=== PATIENT | male | born 1970 | race African-American/Black ===

== ENCOUNTER 2017-03-24 20:01 | Emergency (ER) | payer MEDICAID ==
[2017-03-24 20:21] VITALS: BP 148/99
[2017-03-24] MEDS ORDERED: Cyclobenzaprine 10 MG Tab PO ONE (20:33)
[2017-03-24] MEDS ORDERED: Ketorolac 60 MG/2 ML SDV IM ONE (20:33)
--- NOTE | 2017-03-24 20:36 | EDM.PDOC ---
ED HPI GENERAL MEDICAL PROBLEM - General Chief Complaint: General Stated Complaint: MUSCLE CRAMPS IN ARMS AND LEGS Time Seen by Provider: 03/24/17 20:26 Source of Information: Reports: Patient, RN Notes Reviewed History Limitations: Reports: No Limitations - History of Present Illness INITIAL COMMENTS - FREE TEXT/NARRATIVE: 46-year-old gentleman presents emergency department day with generalized body aches and muscle cramping he states been ongoing for the last 2 days he does work in extreme temperature environments at work ranging from hot to cold he denies any other symptoms or new medications rates the pain 6 out of 10 he did take some oxycodone this morning which provided some relief Generalized Pain Score (Numeric/FACES): 6 - Related Data Allergies Allergy/AdvReac Type Severity Reaction Status Date / Time Penicillins Allergy Swelling Verified 03/24/17 20:21 Home Meds: Home Meds Multivitamin [Multivitamins] 1 tab PO DAILY 03/24/17 [History] NK [No Known Home Meds] 03/24/17 [History] Past Medical History Neurological History: Reports: Concussion - Past Surgical History Musculoskeletal Surgical History: Reports: Other (See Below) Other Musculoskeletal Surgeries/Procedures:: ankle surgery for bone spurs Social & Family History - Tobacco Use Smoking Status *Q: Never Smoker - Recreational Drug Use Recreational Drug Use: Yes Recreational Drug Type: Reports: Marijuana/Hashish Recreational Drug Use Frequency: Not Used In Over 1 Month ED ROS GENERAL - Review of Systems Review Of Systems: See Below Constitutional: Denies: Fever, Chills, Weakness HEENT: Reports: No Symptoms Respiratory: Reports: No Symptoms Cardiovascular: Reports: No Symptoms GI/Abdominal: Reports: No Symptoms : Reports: No Symptoms Musculoskeletal: Reports: Muscle Pain, Muscle Stiffness. Denies: Joint Pain, Joint Swelling Skin: Reports: No Symptoms Neurological: Reports: No Symptoms Psychiatric: Reports: No Symptoms ED EXAM, GENERAL - Physical Exam Exam: See Below Free Text/Narrative:: General: Male, not in any distress, alert and oriented x3 HEENT: head is atraumatic normocephalic, eyes pupils equal round reactive to light, sclera clear no conjunctivitis appreciated. Ears tympanic membranes clear and quintana landmarks and light reflex are present bilaterally canals are clear. Nose no septal deviation, nares are clear, no blood present. Mouth mucosa is moist and pink no erythema or exudate noted in soft palate, tongue is midline uvula is midline, dentition is intact. Neck: Supple no thyromegaly no tracheal deviation. Nodes: Cervical nodes subclavicular nodes nontender no palpable lymphadenopathy noted. Lungs: clear to auscultation bilaterally with symmetrical respirations, no adventitious noise appreciated. CV: Regular rate and rhythm S1 and S2 appreciated no murmurs rubs or gallops noted. Abdomen: Soft, nontender, no palpable masses or organomegaly appreciated, no distention no guarding bowel sounds are present, . Neuro: Cranial nerves II through XII grossly intact Skin: Warm and dry, intact Extremities: No lower extremity edema appreciated, pedal pulse is +2. Course - Vital Signs Last Recorded V/S: Last Vital Signs Temp 98.1 F 03/24/17 20:16 Pulse 87 03/24/17 20:16 Resp 14 03/24/17 20:16 BP 148/99 H 03/24/17 20:16 Pulse Ox 99 03/24/17 20:16 - Orders/Labs/Meds Labs: Laboratory Tests 03/24/17 03/24/17 03/24/17 Range/Units 20:43 20:43 20:48 WBC 7.2 (4.5-11.0) K/uL RBC 5.27 (4.30-5.90) M/uL Hgb 15.1 H (12.0-15.0) g/dL Hct 44.1 (40.0-54.0) % MCV 84 (80-98) fL MCH 29 (27-31) pg MCHC 34 (32-36) % Plt Count 299 (150-400) K/uL Neut % (Auto) 56 (36-66) % Lymph % (Auto) 27 (24-44) % [place] % (Auto) 12 H (2-6) % Eos % (Auto) 4 (2-4) % Baso % (Auto) 1 (0-1) % Sodium 139 L (140-148) mmol/L Potassium 3.8 (3.6-5.2) mmol/L Chloride 102 (100-108) mmol/L Carbon Dioxide 28 (21-32) mmol/L Anion Gap 12.8 (5.0-14.0) mmol/L BUN 9 (7-18) mg/dL Creatinine 1.2 (0.8-1.3) mg/dL Est Cr Clr Drug Dosing 84.43 mL/min Estimated GFR (MDRD) > 60 (>60) Glucose 111 H (74-106) mg/dL Calcium 9.0 (8.5-10.1) mg/dL Total Bilirubin 0.6 (0.2-1.0) mg/dL AST 25 (15-37) U/L ALT 33 (12-78) U/L Alkaline Phosphatase 77 (46-116) U/L Creatine Kinase 809 H (39-308) U/L Total Protein 8.7 H (6.4-8.2) g/dL Albumin 4.1 (3.4-5.0) g/dL Globulin 4.6 H (2.3-3.5) g/dL Albumin/Globulin Ratio 0.9 L (1.2-2.2) Urine Color Yellow Urine Appearance Cloudy Urine pH 5.0 (4.5-8.0) Ur Specific [place] 1.020 (1.008-1.030) Urine Protein Negative (NEGATIVE) mg/dL Urine Glucose (UA) Normal (NEGATIVE) mg/dL Urine Ketones Negative (NEGATIVE) mg/dL Urine Occult Blood Negative (NEGATIVE) Urine Nitrite Negative (NEGAITVE) Urine Bilirubin Negative (NEGATIVE) Urine Urobilinogen Normal (NORMAL) mg/dL Ur Leukocyte Esterase Small (NEGATIVE) Urine RBC 0-5 (0-5) Urine WBC 20-30 H (0-5) Ur Epithelial Cells Few Amorphous Sediment Rare Urine Bacteria Few Urine Mucus Rare Meds: Medications Discontinued Medications Generic Name Dose Route Start Last Admin Trade Name Magdielq PRN Reason Stop Dose Admin Cyclobenzaprine HCl 10 mg 03/24/17 20:33 03/24/17 20:52 Flexeril PO 03/24/17 20:34 10 mg ONETIME ONE Administration Ketorolac Tromethamine 60 mg 03/24/17 20:33 03/24/17 20:52 Toradol IM 03/24/17 20:34 60 mg ONETIME ONE Administration Departure - Departure Time of Disposition: 21:30 Disposition: Home, Self-Care 01 Condition: Good Clinical Impression: Repetitive motion injury, Muscle cramping - Discharge Information Referrals: PCP,None [Primary Care Provider] - Forms: ED Department Discharge Additional Instructions: Use ibuprofen as needed to help with muscle cramps and pain, continue to push fluids with electrolytes, Please followup with your primary care provider in 3- 5 days if not better, please call return to the emergency department with worsening of symptoms. 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 causing excessive sweating Manifestations = muscle cramps Location of injury = Home Lab values = CBC within normal limits CMP demonstrates a protein elevated at 8.7 consistent proteinuria CK is elevated at 809 consistent with muscle breakdown urinalysis reveals WBC 20-30 consistent with pyuria specific gravity urine 1.020 consistent with intravascular volume depletion Plan I did review lab work with him also reviewed his new working environment and after further discussion he does spend time in both hot and cold environments while wearing personal protective equipment which cause him to sweat excessively he's only been doing this job for 2 days which would explain the muscle cramping and muscle breakdown rest and use anti-inflammatories as needed and continue to push fluids with electrolytes follow-up with primary care in 3- 5 days if no improvement, good relief from the Toradol injection provided Patient was in agreement with the plan all questions were answered, they were instructed to return to the emergency department or call for worsening symptoms. This note was dictated using [employer] voice recognition software please call with any questions.
== END 2017-03-24 21:42 | disposition home or self-care (01) ==
LOC: JP.ED 20:01
DX: R25.2 Cramp and spasm (principal); Z88.0 Allergy status to penicillin; X50.9XXA Other and unspecified overexertion or strenuous movements or postures, initial encounter; Y99.0 Civilian activity done for income or pay
CPT/HCPCS: 36415; 80053; 81001; 82550; 85025; 96372; 99284; A9270; J1885; 99283

== ENCOUNTER 2017-04-17 19:08 | Emergency (ER) | payer MEDICAID ==
[2017-04-17 20:03] VITALS: BP 151/82
--- NOTE | 2017-04-17 20:43 | EDM.PDOC ---
ED HPI GENERAL MEDICAL PROBLEM - General Chief Complaint: Lower Extremity Injury/Pain Stated Complaint: L ANKLE Time Seen by Provider: 04/17/17 20:22 Source of Information: Reports: Patient, RN Notes Reviewed History Limitations: Reports: No Limitations - History of Present Illness INITIAL COMMENTS - FREE TEXT/NARRATIVE: 46-year-old gentleman presents emergency department day complaint of left ankle pain, he states is been ongoing for a couple years she has had some surgical interventions to this ankle however the last couple days the pain has gotten progressively worse he does work at [employer] which consists of long periods of standing Left Ankle Pain Score (Numeric/FACES): 7 - Related Data Allergies Allergy/AdvReac Type Severity Reaction Status Date / Time Penicillins Allergy Swelling Verified 04/17/17 20:03 Home Meds: Home Meds Multivitamin [Multivitamins] 1 tab PO DAILY 03/24/17 [History] NK [No Known Home Meds] 03/24/17 [History] Past Medical History Neurological History: Reports: Concussion - Past Surgical History Musculoskeletal Surgical History: Reports: Other (See Below) Other Musculoskeletal Surgeries/Procedures:: ankle surgery for bone spurs Social & Family History - Tobacco Use Smoking Status *Q: Unknown Ever Smoked - Recreational Drug Use Recreational Drug Use: Yes Recreational Drug Type: Reports: Marijuana/Hashish Recreational Drug Use Frequency: Not Used In Over 1 Month Review of Systems - Review of Systems Review Of Systems: See Below Musculoskeletal: Reports: Joint Pain (Ankle pain) Skin: Reports: No Symptoms Neurological: Reports: No Symptoms ED EXAM, GENERAL - Physical Exam Exam: See Below Free Text/Narrative:: Patient refused an exam therefore no physical exam was done by observation he has limited range of motion of ankle there is a edema appreciated as well Course - Vital Signs Last Recorded V/S: Last Vital Signs Temp 97.9 F 04/17/17 20:00 Pulse 81 04/17/17 20:00 Resp 15 04/17/17 20:00 BP 151/82 H 04/17/17 20:00 Pulse Ox 97 04/17/17 20:00 - Orders/Labs/Meds Orders: Active Orders 24 hr Category Date Time Status DME for Discharge [COMM] Per Unit Routine Oth 04/17/17 20:38 Ordered Departure - Departure Time of Disposition: 20:42 Disposition: Home, Self-Care 01 Condition: Fair Clinical Impression: Left ankle pain Qualifiers: Chronicity: chronic Qualified Code(s): M25.572 - Pain in left ankle and joints of left foot; G89.29 - Other chronic pain; G89.29 - Other chronic pain - Discharge Information Referrals: PCP,None [Primary Care Provider] - Additional Instructions: Continue to use your stirrup support as needed, use ibuprofen for baseline pain control use hydrocodone for breakthrough pain, please call to the clinic in the morning to get an appointment with podiatry - My Orders Last 24 Hours: My Active Orders 04/17/17 20:38 DME for Discharge [COMM] Per Unit Routine - Assessment/Plan Last 24 Hours: My Active Orders 04/17/17 20:38 DME for Discharge [COMM] Per Unit Routine Plan: Assessment Acuity = chronic Site and laterality = chronic ankle pain left Etiology = unclear etiology Manifestations = none Location of injury = Home Lab values = none Plan Plan is a consultation with podiatry he was placed in an ankle stirrup which did provide some support total of 10 hydrocodone provided for pain control 5/ 325 one tab by mouth 3 times a day when necessary Patient was in agreement with the plan all questions were answered, they were instructed to return to the emergency department or call for worsening symptoms. This note was dictated using [employer] voice recognition software please call with any questions.
== END 2017-04-17 20:50 | disposition home or self-care (01) ==
LOC: JP.ED 19:08
DX: M25.572 Pain in left ankle and joints of left foot (principal); G89.29 Other chronic pain; Z88.0 Allergy status to penicillin; Z98.890 Other specified postprocedural states
CPT/HCPCS: 99283

== ENCOUNTER 2017-10-10 13:33 | Emergency (ER) | payer SELFPAY ==
[2017-10-10 14:40] VITALS: BP 148/92
[2017-10-10] MEDS ORDERED: Ketorolac 60 MG/2 ML SDV IM ONE (14:54)
[2017-10-10] MEDS ORDERED: methylPREDNISolone Acetate 40 MG/ML SDV IM ONE (15:19)
--- NOTE | 2017-10-10 15:26 | EDM.PDOC ---
ED HPI GENERAL MEDICAL PROBLEM - General Chief Complaint: Upper Extremity Injury/Pain Stated Complaint: LT SHOULDER PAIN Time Seen by Provider: 10/10/17 15:22 Source of Information: Reports: Patient History Limitations: Reports: No Limitations - History of Present Illness INITIAL COMMENTS - FREE TEXT/NARRATIVE: Pt got up this m with severe pain in the deltoid area of the left arm. He is having alot of pain with lifting the arm. Onset: Today, Other ( got up with the paain. ) Duration: Hour(s): Location: Reports: Upper Extremity, Left Associated Symptoms: Reports: No Other Symptoms Left Shoulder Pain Score (Numeric/FACES): 3 - Related Data Allergies Allergy/AdvReac Type Severity Reaction Status Date / Time Penicillins Allergy Swelling Verified 04/17/17 20:03 Home Meds: Home Meds Multivitamin [Multivitamins] 1 tab PO DAILY 03/24/17 [History] NK [No Known Home Meds] 03/24/17 [History] Past Medical History Neurological History: Reports: Concussion - Past Surgical History Musculoskeletal Surgical History: Reports: Other (See Below) Other Musculoskeletal Surgeries/Procedures:: ankle surgery for bone spurs Social & Family History - Tobacco Use Smoking Status *Q: Never Smoker - Caffeine Use Caffeine Use: Reports: Soda - Recreational Drug Use Recreational Drug Use: No Recreational Drug Type: Reports: Marijuana/Hashish Recreational Drug Use Frequency: Not Used In Over 1 Month Review of Systems - Review of Systems Review Of Systems: See Below Constitutional: Reports: No Symptoms Eyes: Reports: No Symptoms Ears: Reports: No Symptoms Nose: Reports: No Symptoms Mouth/Throat: Reports: No Symptoms Respiratory: Reports: No Symptoms Cardiovascular: Reports: No Symptoms GI/Abdominal: Reports: No Symptoms Musculoskeletal: Reports: Other ( pain in the left deltoid area. ) Skin: Reports: No Symptoms Neurological: Reports: No Symptoms ED EXAM, GENERAL - Physical Exam Exam: See Below Free Text/Narrative:: pt arrived with pain in the left deltoid area. Exam Limited By: No Limitations General Appearance: Alert, Anxious Ears: Normal TMs Extremities: Other (pt has pain over the deltoid insertion area. Xray was obtained which does not show acute findings. ) Course - Vital Signs Last Recorded V/S: Last Vital Signs Temp 36.4 C 10/10/17 14:46 Pulse 72 10/10/17 14:46 Resp 15 10/10/17 14:46 BP 148/92 H 10/10/17 14:46 Pulse Ox 99 10/10/17 14:46 - Orders/Labs/Meds Meds: Medications Discontinued Medications Generic Name Dose Route Start Last Admin Trade Name Ranjeet PRN Reason Stop Dose Admin Ketorolac Tromethamine 60 mg 10/10/17 14:54 10/10/17 15:03 Toradol IM 10/10/17 14:55 60 mg ONETIME ONE Administration Lidocaine HCl 5 ml 10/10/17 15:20 10/10/17 15:25 Xylocaine-Mpf 1% INJECT 10/10/17 15:21 5 ml ONETIME ONE Administration Methylprednisolone Acetate 40 mg 10/10/17 15:19 10/10/17 15:25 Depo-Medrol IM 10/10/17 15:20 40 mg ONETIME ONE Administration - Re-Assessments/Exams Free Text/Narrative Re-Assessment/Exam: 10/10/17 15:34 The deltoid area was cleansed well and it was infiltrated with lidocaine. 40 mg of depromedrol was injected into the deltoid site. The xray did not show acute findings. It was flt he had a deltoid tendonitis 10/12/17 07:18 Departure - Departure Time of Disposition: 15:35 Disposition: Home, Self-Care 01 Condition: Fair Clinical Impression: Deltoid tendonitis - Discharge Information Instructions: Tendinitis Referrals: PCP,None [Primary Care Provider] - Forms: ED Department Discharge Care Plan Goals: moist warm packs to the deltoid area, naprosyn 500mg tid , do range of motion
--- NOTE | 2017-10-11 11:46 | CR ---
No evidence for fracture. Spurring at the acromion.
== END 2017-10-10 15:43 | disposition home or self-care (01) ==
LOC: JP.ED 13:33
DX: M75.92 Shoulder lesion, unspecified, left shoulder (principal); Z88.0 Allergy status to penicillin
CPT/HCPCS: 73030; 96372; 99284; J1030; J1885

== ENCOUNTER 2018-09-29 22:22 | Emergency (ER) | payer MEDICAID ==
[2018-09-29 22:39] VITALS: BP 155/96
--- NOTE | 2018-09-29 22:59 | EDM.PDOC ---
ED HPI GENERAL MEDICAL PROBLEM - General Chief Complaint: Back Pain or Injury Stated Complaint: HIT BACK ON PORCH Time Seen by Provider: 09/29/18 22:45 Source of Information: Reports: Patient History Limitations: Reports: No Limitations - History of Present Illness INITIAL COMMENTS - FREE TEXT/NARRATIVE: 48-year-old male was throwing garbage over his back porch when he slipped on the ice and struck his right lower back on a railing a couple of hours ago. He took some ibuprofen and laid down but it woke him up from sleep, he works tomorrow so wanted to make sure it was just a bruise. No abdominal pain, nausea or vomiting, urinary symptoms. Onset: Sudden Duration: Hour(s): (2-3 hours ago) Location: Reports: Back Associated Symptoms: Reports: No Other Symptoms - Related Data Allergies Allergy/AdvReac Type Severity Reaction Status Date / Time Penicillins Allergy Swelling Verified 09/29/18 22:42 Home Meds: Home Meds Multivitamin [Multivitamins] 1 tab PO DAILY 03/24/17 [History] Past Medical History Neurological History: Reports: Concussion - Infectious Disease History Infectious Disease History: Reports: Chicken Pox - Past Surgical History Musculoskeletal Surgical History: Reports: Other (See Below) Other Musculoskeletal Surgeries/Procedures:: ankle surgery for bone spurs Social & Family History - Tobacco Use Smoking Status *Q: Never Smoker - Caffeine Use Caffeine Use: Reports: Soda, Tea ED ROS GENERAL - Review of Systems Review Of Systems: See Below Constitutional: Denies: Fever, Chills HEENT: Reports: No Symptoms Respiratory: Reports: Pleuritic Chest Pain (Some right flank discomfort with breathing). Denies: Shortness of Breath Cardiovascular: Denies: Chest Pain GI/Abdominal: Reports: No Symptoms : Reports: No Symptoms Musculoskeletal: Reports: Back Pain Skin: Reports: No Symptoms Neurological: Reports: No Symptoms ED EXAM,LOWER BACK PAIN/INJURY - Physical Exam Exam: See Below Exam Limited By: No Limitations General Appearance: Alert, No Apparent Distress (Some discomfort with moving) Head: Atraumatic Respiratory/Chest: No Respiratory Distress, Lungs Clear GI/Abdominal: Soft, Non-Tender Back Exam: Paraspinal Tenderness (Patient has fairly significant paraspinous tenderness over the upper lumbar lower thoracic spine. No bruising, asymmetry or crepitus.) Neurological: Alert Course - Vital Signs Last Recorded V/S: Last Vital Signs Temp 96.9 F 09/29/18 22:46 Pulse 71 09/29/18 22:46 Resp 17 09/29/18 22:46 BP 155/96 H 09/29/18 22:46 Pulse Ox 95 09/29/18 22:46 - Re-Assessments/Exams Free Text/Narrative Re-Assessment/Exam: 09/29/18 22:58 The area this patient is injured is very unlikely to be a fracture, especially with the mechanism of injury. He was given 6 [place] for extra pain control tonight and encouraged to try to go to work tomorrow and increase activity as tolerated. A regular dose of ibuprofen or naproxen would also be beneficial. Departure - Departure Time of Disposition: 23:09 Disposition: Home, Self-Care 01 Condition: Good Clinical Impression: Contusion of back Qualifiers: Encounter type: initial encounter Laterality: right Qualified Code(s): S20.221A - Contusion of right back wall of thorax, initial encounter - Discharge Information Instructions: Contusion, [id number] Referrals: PCP,None [Primary Care Provider] - Forms: ED Department Discharge Care Plan Goals: Continue a regular dose of ibuprofen or naproxen for pain, add stronger pain medication as directed if needed. Increase activity as tolerated, try to work tomorrow if possible. Return in the next 48-72 hours if not improving satisfactorily, or you develop other concerns such as difficulty breathing.
== END 2018-09-29 23:10 | disposition home or self-care (01) ==
LOC: JP.ED 22:22
DX: S20.221A Contusion of right back wall of thorax, initial encounter (principal); Z88.0 Allergy status to penicillin; W00.0XXA Fall on same level due to ice and snow, initial encounter
CPT/HCPCS: 99283

== ENCOUNTER 2018-11-18 16:15 | Emergency (ER) | payer MEDICAID ==
[2018-11-18 16:43] VITALS: BP 135/82
[2018-11-18] MEDS ORDERED: Ondansetron 4 MG Tab.DIS PO ONE (17:02)
--- NOTE | 2018-11-18 17:05 | EDM.PDOC ---
ED HPI GENERAL MEDICAL PROBLEM - General Chief Complaint: Gastrointestinal Problem Stated Complaint: stomach pain/problems Time Seen by Provider: 11/18/18 17:00 Source of Information: Reports: Patient History Limitations: Reports: No Limitations - History of Present Illness INITIAL COMMENTS - FREE TEXT/NARRATIVE: Nelida is a 48 year old male, presents to the ED today with c/o lower abdominal cramping for the last two days, sharp in nature, improves with defecation which patient reports has been diarrhea like for the last 2 days, he denies any hematochezia, recent travel, recent antibiotic use, or vomiting. Patient endorses waves of nausea but states he has been able to keep fluids down. Patient denies any hx of inflammatory bowel disease or obstruction. Patient has not taken any medications for his symptoms. Onset: Gradual Duration: Day(s): (2) Abdomen Pain Score (Numeric/FACES): 7 - Related Data Allergies Allergy/AdvReac Type Severity Reaction Status Date / Time Penicillins Allergy Swelling Verified 11/18/18 16:43 Home Meds: Home Meds Multivitamin [Multivitamins] 1 tab PO DAILY 03/24/17 [History] Past Medical History Musculoskeletal History: Reports: Osteoarthritis Neurological History: Reports: Concussion - Infectious Disease History Infectious Disease History: Reports: Chicken Pox - Past Surgical History Musculoskeletal Surgical History: Reports: Other (See Below) Other Musculoskeletal Surgeries/Procedures:: ankle surgery for bone spurs arthroscopic Social & Family History - Tobacco Use Smoking Status *Q: Never Smoker - Caffeine Use Caffeine Use: Reports: None - Recreational Drug Use Recreational Drug Use: No ED ROS GENERAL - Review of Systems Review Of Systems: ROS reveals no pertinent complaints other than HPI. ED EXAM, GI/ABD - Physical Exam Exam: See Below Exam Limited By: No Limitations General Appearance: Alert, WD/WN, No Apparent Distress Throat/Mouth: Normal Oropharynx Neck: Normal Inspection, Supple, Non-Tender Respiratory/Chest: No Respiratory Distress, Lungs Clear, Normal Breath Sounds, No Accessory Muscle Use Cardiovascular: Normal Peripheral Pulses, Regular Rate, Rhythm, No Murmur GI/Abdominal Exam: Normal Bowel Sounds, Soft, Non-Tender, No Distention Extremities: Normal Inspection Neurological: Alert, Oriented, CN II-XII Intact Psychiatric: Normal Affect Skin Exam: Warm, Dry, Intact Lymphatic: No Adenopathy Course - Vital Signs Last Recorded V/S: Last Vital Signs Temp 36.5 C 11/18/18 16:40 Pulse 70 11/18/18 16:40 Resp 18 11/18/18 16:40 BP 135/82 11/18/18 16:40 Pulse Ox 97 11/18/18 16:40 Nelida is a 48 year old male who presents to the ED today with diarrhea and stomach pain for 2 days, no fever, no vomiting, VSS here, afebrile, likely viral gastroenteritis. White count here is normal, lipase and comprehensive panel within normal limits, mild hypokalemia. Patient drinking fluids here after ODT Zofran without any difficulty, no worrisome findings for obstruction or infectious etiology, will send home with ODT Zofran and Imodium as needed. Reasons to return to the ED discussed, patient agreeable to plan of care and discharged in stable condition. - Orders/Labs/Meds Labs: Laboratory Tests 11/18/18 11/18/18 Range/Units 17:18 17:18 WBC 7.8 (4.5-11.0) K/uL RBC 5.12 (4.30-5.90) M/uL Hgb 14.3 (12.0-15.0) g/dL Hct 43.5 (40.0-54.0) % MCV 85 (80-98) fL MCH 28 (27-31) pg MCHC 33 (32-36) % Plt Count 319 (150-400) K/uL Neut % (Auto) 66 (36-66) % Lymph % (Auto) 23 L (24-44) % [place] % (Auto) 8 H (2-6) % Eos % (Auto) 2 (2-4) % Baso % (Auto) 1 (0-1) % Sodium 141 (140-148) mmol/L Potassium 3.5 L (3.6-5.2) mmol/L Chloride 105 (100-108) mmol/L Carbon Dioxide 28 (21-32) mmol/L Anion Gap 11.5 (5.0-14.0) mmol/L BUN 7 (7-18) mg/dL Creatinine 1.1 (0.8-1.3) mg/dL Est Cr Clr Drug Dosing 90.14 mL/min Estimated GFR (MDRD) > 60 (>60) Glucose 107 H (74-106) mg/dL Calcium 9.3 (8.5-10.1) mg/dL Total Bilirubin 0.4 (0.2-1.0) mg/dL AST 16 (15-37) U/L ALT 25 (12-78) U/L Alkaline Phosphatase 64 (46-116) U/L Total Protein 7.6 (6.4-8.2) g/dL Albumin 3.8 (3.4-5.0) g/dL Globulin 3.8 H (2.3-3.5) g/dL Albumin/Globulin Ratio 1.0 L (1.2-2.2) Lipase 140 (73-393) U/L Meds: Medications Discontinued Medications Generic Name Dose Route Start Last Admin Trade Name Freq PRN Reason Stop Dose Admin Ondansetron HCl 4 mg 11/18/18 17:02 11/18/18 17:11 Zofran Odt PO 11/18/18 17:03 4 mg ONETIME ONE Administration Departure - Departure Time of Disposition: 18:30 Disposition: Home, Self-Care 01 Condition: Good Clinical Impression: Viral gastroenteritis - Discharge Information Instructions: Viral Gastroenteritis, Adult, [id number] Referrals: PCP,None [Primary Care Provider] - Forms: ED Department Discharge Additional Instructions: Stay well hydrated. Zofran as needed for nausea Imodium or [place] as needed for diarrhea. Return or follow up in clinic with any worsening symptoms or concerns.
== END 2018-11-18 18:09 | disposition home or self-care (01) ==
LOC: JP.ED 16:15
DX: A08.4 Viral intestinal infection, unspecified (principal); Z79.899 Other long term (current) drug therapy; Z88.0 Allergy status to penicillin
CPT/HCPCS: 36415; 80053; 83690; 85025; 99284; A9270